=== PATIENT | female | born 1985 | race Caucasian/White ===

== ENCOUNTER 2024-06-06 19:49 | Inpatient (IN) | payer MEDICAID ==
[~2024-06-06] VITALS: Ht 172.7 cm; Wt 89.0 kg
[2024-06-06] MEDS: LORazepam 2 mg/ml vial IV ONE ×2 (21:35→23:22)
[2024-06-06 21:36] LABS: BASOPHILS % (AUTO) 0.5 % (0-1); EOSINOPHILS % (AUTO) 0 % (0-6); HEMATOCRIT 34.4 % (35.0-45.0); HEMOGLOBIN 11.1 g/dl (12.0-16.0); LYMPHOCYTES # (AUTO) 0.6 X10'3 (1.1-4.8); LYMPHOCYTES % (AUTO) 9.3 % (21-51); MEAN CORPUSCULAR HEMOGLOBIN 28.1 PG (27.0-31.0); MEAN CORPUSCULAR HGB CONC 32.3 g/dL (33.0-36.5); MEAN CORPUSCULAR VOLUME 86.9 FL (78-98); MEAN PLATELET VOLUME 6.8 FL (7.4-10.4); MONOCYTES # (AUTO) 0.3 X10'3 (0-0.9); NEUTROPHILS # (AUTO) 5.8 X10'3 (1.8-7.7); NEUTROPHILS % (AUTO) 86.2 % (42-75); PLATELET COUNT 343 X10'3 (140-440); RED BLOOD COUNT 3.96 X10'6 (4.20-5.60); RED CELL DISTRIBUTION WIDTH 18.7 % (11.5-14.5); WHITE BLOOD COUNT 6.7 X10'3 (4.5-11.0)
[2024-06-06 21:44] LABS: APTT 27 SECONDS (22-32); PROTHROMBIN TIME 10.5 SECONDS (9.0-12.0)
[2024-06-06] MEDS: phenoBARBITAL inj 260 MG in normal saline 100ml IV soln 98 ML IV SCH (21:45)
[2024-06-06 21:48] LABS: HCG SERUM QL NEGATIVE
[2024-06-06 21:50] LABS: ALANINE AMINOTRANSFERASE 49 U/L (12-78); ALBUMIN 3.8 G/DL (3.4-5.0); ALBUMIN/GLOBULIN RATIO 0.9 (1.1-1.5); ALKALINE PHOSPHATASE 114 IU/L (46-116); ANION GAP 9 (8-16); ASPARTATE AMINO TRANSFERASE 47 U/L (10-37); BILIRUBIN,TOTAL 0.3 MG/DL (0.1-1.0); BLOOD UREA NITROGEN 2 MG/DL (7-18); BUN/CREATININE RATIO 2.8 (10.0-20.0); CALCIUM 10.4 MG/DL (8.5-10.1); CHLORIDE 108 MMOL/L (99-107); CREATININE 0.72 MG/DL (0.40-0.90); GLUCOSE 121 MG/DL (70-104); POTASSIUM 4.2 MMOL/L (3.5-5.1); SODIUM 142 MMOL/L (135-145); TOTAL CARBON DIOXIDE 25.2 MMOL/L (24-32); TOTAL PROTEIN 7.9 G/DL (6.4-8.2); eCRCL 107 ML/MIN; eGFR > 90 ML/MIN
[2024-06-06] MEDS: metoclopramide 5 mg/ml inj IV ONE (21:51)
[2024-06-06] MEDS: normal saline 1000ml 1,000 ML IV ONE (21:51)
[2024-06-06 21:58] LABS: LIPASE 39 U/L (16-77); MAGNESIUM 1.4 MG/DL (1.5-2.4); THYROID STIMULATING HORMONE 1.32 ulU/ml (0.34-4.50)
[2024-06-07] MEDS ORDERED: NO HOME MEDS (02:48)
[2024-06-07] MEDS ORDERED: magnesium sulf-water 2g/50mL 50 ML IV PRN (03:05)
[2024-06-07] MEDS ORDERED: potassium Cl 40MEQ/1/2NS 520ml 520 ML IV PRN (03:05)
[2024-06-07] MEDS ORDERED: dextrose 50%-water 50ml dispensing syringe IV PRN (03:05)
[2024-06-07] MEDS ORDERED: potassium Cl 20 mEq SR tablet PO PRN ×2 (03:05)
[2024-06-07] MEDS ORDERED: acetaminophen 325mg tablet PO PRN ×2 (03:05)
[2024-06-07] MEDS ORDERED: magnesium sulf-water 4G/100mL 100 ML IV PRN (03:05)
[2024-06-07] MEDS ORDERED: haloperidol lactate 5mg/ml inj IM PRN (03:05)
[2024-06-07] MEDS ORDERED: mag hydrox/Alum hydrox/simeth 30ml oral suspension PO PRN (03:05)
[2024-06-07] MEDS ORDERED: magnesium hydroxide 30ml (MOM) UD suspension PO PRN (03:05)
[2024-06-07] MEDS: nicotine 21mg patch - 24 hr TD SCH (03:51)
[2024-06-07] MEDS: ondansetron/PF 4mg/2ml inj IV PRN (03:51)
[2024-06-07] MEDS: LORazepam 2 mg/ml vial IV PRN (03:52)
[2024-06-07 07:15] VITALS: BP 129/72; PULSE 67; PULSE 75; RESP 16; TEMP 97.7; O2SAT 99
[2024-06-07 07:38] LABS: MAGNESIUM 1.2 MG/DL (1.5-2.4); PHOSPHORUS 3.1 MG/DL (2.3-4.5); POTASSIUM 3.6 MMOL/L (3.5-5.1)
[2024-06-07 07:44] LABS: HEMOGLOBIN A1C 5.2 % (4.5-6.2)
[2024-06-07] MEDS ORDERED: phenoBARBITAL inj 260 MG in normal saline 100ml IV soln 98 ML IV SCH (08:00)
[2024-06-07] MEDS ORDERED: heparin, porcine 5000 units/ml vial SQ SCH (08:00)
[2024-06-07] MEDS: pantoprazole 40 MG vial IV SCH (08:20)
[2024-06-07] MEDS: multivitamins, therapeutics tablet PO SCH (08:20)
[2024-06-07] MEDS: thiamine 100mg/ml 2ml inj. IV SCH (08:20)
[2024-06-07] MEDS: docusate sod 100mg capsule PO SCH (08:20)
[2024-06-07] MEDS: folic acid 1mg/0.2ml inj IV SCH (08:25)
[2024-06-07] MEDS: magnesium Cl slow-release 64mg tablet PO PRN (08:44)
[2024-06-07] MEDS: K and/or MAG REPLACEMENT MC SCH (08:45)
[2024-06-07 10:00] VITALS: BP 116/67; PULSE 84; RESP 14; TEMP 98.7; O2SAT 99
[2024-06-07 11:38] VITALS: RESP 16; O2SAT 98
[2024-06-07 11:39] VITALS: BP 116/67; PULSE 72; RESP 16; O2SAT 99
[2024-06-07 19:15] VITALS: BP 115/62; PULSE 94; RESP 13; TEMP 98.7; O2SAT 99
[2024-06-07 22:00] VITALS: BP 132/80; PULSE 96; RESP 16; TEMP 98.1; O2SAT 99
[2024-06-08 06:00] VITALS: BP 118/76; PULSE 81; RESP 14; TEMP 97.2; O2SAT 98
[2024-06-08 06:10] LABS: BASOPHILS % (AUTO) 0.4 % (0-1); EOSINOPHILS % (AUTO) 0.4 % (0-6); HEMATOCRIT 31.9 % (35.0-45.0); HEMOGLOBIN 10.3 g/dl (12.0-16.0); LYMPHOCYTES # (AUTO) 1.3 X10'3 (1.1-4.8); LYMPHOCYTES % (AUTO) 25.7 % (21-51); MEAN CORPUSCULAR HEMOGLOBIN 28.4 PG (27.0-31.0); MEAN CORPUSCULAR HGB CONC 32.2 g/dL (33.0-36.5); MEAN CORPUSCULAR VOLUME 88.2 FL (78-98); MEAN PLATELET VOLUME 7.6 FL (7.4-10.4); MONOCYTES # (AUTO) 0.4 X10'3 (0-0.9); MONOCYTES % (AUTO) 7.4 % (2-12); NEUTROPHILS # (AUTO) 3.3 X10'3 (1.8-7.7); NEUTROPHILS % (AUTO) 66.1 % (42-75); PLATELET COUNT 273 X10'3 (140-440); RED BLOOD COUNT 3.62 X10'6 (4.20-5.60); RED CELL DISTRIBUTION WIDTH 18.6 % (11.5-14.5); WHITE BLOOD COUNT 4.9 X10'3 (4.5-11.0)
[2024-06-08 06:35] LABS: ALANINE AMINOTRANSFERASE 35 U/L (12-78); ALBUMIN 3.1 G/DL (3.4-5.0); ALBUMIN/GLOBULIN RATIO 0.9 (1.1-1.5); ALKALINE PHOSPHATASE 94 IU/L (46-116); ANION GAP 6 (8-16); ASPARTATE AMINO TRANSFERASE 26 U/L (10-37); BILIRUBIN,TOTAL 0.5 MG/DL (0.1-1.0); BLOOD UREA NITROGEN 6 MG/DL (7-18); BUN/CREATININE RATIO 8.3 (10.0-20.0); CALCIUM 9.9 MG/DL (8.5-10.1); CHLORIDE 107 MMOL/L (99-107); CHOL/HDL RATIO 2.3 (0.00-4.99); CHOLESTEROL 176 MG/DL (0-200); CREATININE 0.72 MG/DL (0.40-0.90); GLUCOSE 89 MG/DL (70-104); HDL CHOLESTEROL 77 MG/DL (35-60); LDL CHOLESTEROL 75 MG/DL (50-100); POTASSIUM 3.9 MMOL/L (3.5-5.1); SODIUM 140 MMOL/L (135-145); TOTAL CARBON DIOXIDE 27.3 MMOL/L (24-32); TOTAL PROTEIN 6.6 G/DL (6.4-8.2); TRIGLYCERIDES 35 MG/DL (20-135); eCRCL 107 ML/MIN; eGFR > 90 ML/MIN
[2024-06-08] MEDS: multivitamins, therapeutics tablet PO SCH (09:03)
[2024-06-08 10:00] VITALS: BP 105/65; PULSE 84; RESP 19; TEMP 97.2; O2SAT 98
[2024-06-08] MEDS ORDERED: NICO-687 TD (13:21)
[2024-06-08] MEDS ORDERED: FOLI1TAB27 PO (13:21)
[2024-06-08] MEDS ORDERED: MULT-25 PO (13:21)
[2024-06-08] MEDS ORDERED: thiamine tablet PO (13:21)
[2024-06-08] MEDS ORDERED: PANT40TA54 PO (13:22)
[2024-06-08] MEDS ORDERED: NALT50TA5 PO (13:23)
[2024-06-08] MEDS ORDERED: ONDA-103 PO (15:53)
[2024-06-09] MEDS ORDERED: LORazepam 2 mg/ml vial IV PRN (03:05)
[2024-06-09] MEDS ORDERED: LORazepam 1 MG tablet PO PRN (03:05)
[2024-06-11] MEDS ORDERED: LORazepam 1 MG tablet PO PRN (03:05)
[2024-06-11] MEDS ORDERED: thiamine 100mg tablet PO SCH (08:00)
[2024-06-11] MEDS ORDERED: folic acid 1mg tablet PO SCH (08:00)
== END 2024-06-08 16:35 | disposition home or self-care (01) | DRG 663 ==
LOC: ER 19:50 → UNDOADMIN 06-07 02:49 → ED HOLD 06-07 02:49 → ORTHO 4S 06-07 07:20
PROVIDERS: ADMIT Internal Medicine Critical Care Medicine; ATTEND Family Medicine
DX: D64.9 Anemia, unspecified (principal); E44.0 Moderate protein-calorie malnutrition; F10.239 Alcohol dependence with withdrawal, unspecified; F41.0 Panic disorder [episodic paroxysmal anxiety]; Z68.29 Body mass index [BMI] 29.0-29.9, adult
CPT/HCPCS: 36415; 71045; 80053; 80061; 83036; 83690; 83735; 83880; 84100; 84132; 84443; 84484; 84703; 85025; 85610; 85730; 87081; 93005; 96365; 96375; 99291; A6222; A6258; A6446; A6449; G0378; J2060; J2405; J2470; J2560; J2765; J3411; J3490; J7030